=== PATIENT | male | born 1965 | race Caucasian/White ===

== ENCOUNTER → 2016-07-26 | Outpatient (REF) ==
--- NOTE | 2016-07-26 13:56 | REP ---
LEFT KNEE SERIES: Five views. HISTORY: Disability. Degenerative disc disease. No comparison views. FINDINGS: There is considerable old posttraumatic deformity of the patella with multiple peripatellar soft tissue ossicles proximal and distal to the patella as well as medially and lateral to the patella. A normal fabella is noted. There is patellofemoral spurring and joint space narrowing and there is some moderate medial and lateral tibiofemoral spurring. No tibial femoral joint space narrowing is appreciated. No evidence of joint effusion seen. IMPRESSION: Three compartment osteoarthritis. 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 Signed by Efrain Alexandre MD 07/26/2016 02:07 P
--- NOTE | 2016-07-26 13:57 | REP ---
LUMBAR SPINE SERIES: Three views. Limited study. HISTORY: Degenerative disc disease. Disability. FINDINGS: Lumbar vertebral body heights are preserved. Alignment is normal. There is disc space narrowing at L4-5 and L5-S1 with osteophyte formation at these levels. Pedicles and posterior elements are intact. There is no evidence of spondylolysis or spondylolisthesis. Psoas margins are symmetric. Sacrum and SI joints are intact. Visualized bowel gas pattern is unremarkable. IMPRESSION: Degenerative disc changes at L4-5 and L5-S1. Otherwise negative. Signed by Efrain Alexandre MD 07/26/2016 02:07 P
== END ==
LOC: M SMT 10:38
PROVIDERS: ATTEND Internal Medicine
DX: Z02.71 Encounter for disability determination (principal); M54.5 Low back pain

== ENCOUNTER → 2020-08-26 | Outpatient (REF) | payer MEDICARE ==
[2020-08-26 19:48] LABS: APPEARANCE, URINE CLEAR (CLEAR); BACTERIA, URINE AUTO NEGATIVE (NEGATIVE); BILIRUBIN, URINE AUTO NEGATIVE (NEGATIVE); BLOOD, URINE BLOOD NEGATIVE (NEGATIVE); COLOR, URINE YELLOW (YELLOW); GLUCOSE, URINE (UA) AUTO NEGATIVE (NEGATIVE); KETONE, URINE AUTO NEGATIVE (NEGATIVE); LEUKOCYTE ESTERASE, URINE AUTO NEGATIVE (NEGATIVE); MUCUS, URINE SMALL (NEGATIVE); NITRITE, URINE AUTO NEGATIVE (NEGATIVE); PROTEIN, URINE AUTO NEGATIVE (NEGATIVE); RBC, URINE AUTO 0 /HPF (0-3); SPECIFIC GRAVITY URINE AUTO 1.015 (1.002-1.035); SQUAMOUS EPITHELIAL CELL UR AU 0 /HPF (0-6); UROBILINOGEN, URINE AUTO 0.2 mg/dL (0.0-2.0); WBC, URINE AUTO 0 /HPF (0-3)
== END ==
LOC: M SMT 17:21
PROVIDERS: ATTEND Nurse Practitioner Women's Health
DX: R97.20 Elevated prostate specific antigen [PSA] (principal); N40.0 Benign prostatic hyperplasia without lower urinary tract symptoms
CPT/HCPCS: 81001; 87086; G0463